=== PATIENT | male | born 1950 | race African-American/Black ===

== ENCOUNTER 2018-05-29 10:30 | Inpatient (IN) | payer OTHER, MEDICAID ==
[2018-05-29] MEDS ORDERED: ONDANSETRON 4 MG/2 ML VIAL ONE (11:08)
[2018-05-29] MEDS ORDERED: ONDANSETRON 4 MG/2 ML VIAL IVP ONE (11:12)
[2018-05-29 11:37] LABS: PLATELET COUNT 176 10^3/uL (150-400)
--- NOTE | 2018-05-29 12:21 | EDPHY ---
General - History Smoking Status: Former smoker Time Seen by Provider: 05/29/18 10:33 Narrative: CLINICAL IMPRESSION: Pneumonia, acute renal failure, hypoxia ASSESSMENT/PLAN: 67-year-old male, resident of [place], DNR, presents to the emergency department by ambulance for evaluation of acute renal failure and fatigue over the last 4-5 days. Patient reports a vomiting illness over the weekend and is accompanied by labs showing creatinine of 3.5, BUN of 113, potassium of 2.5. I was able to speak to the nurse practitioner caring for this patient at [place] [facility] who reported that initially the patient refused evaluation at the hospital. There was then a discussion with the patient about going on hospice care however when end of life questions were reviewed with him, he changed his mind and requested to go to the hospital. Patient arrives hypoxic at 79% on room air, somewhat confused which is reportedly new for him, and appears fatigued and weak. Chest x-ray concerning for a left lower lobe infiltrate. He has a corresponding mild leukocytosis of 10, normal lactate, renal failure with creatinine of 2.5 today, BUN of 118, improved potassium at 3 but still hypokalemic. Sepsis protocol initiated. Patient was given a 30 mL/kilos fluid bolus, blood cultures ordered, and patient will be admitted for further treatment. Case discussed with Rosetta from hospitalist service who assigned case to Dr. Stearns who saw the patient in the ED. I relayed the nurse practitioner's discussion with the patient to our hospitalist and provided nurse practitioner follow-up information. Patient tells me that he does agree to hospitalization and would like treatment. He was stabilized in the ED for transfer to the PCU. Case discussed with Dr. Tolliver DIFFERENTIAL DX: Differential includes but not limited to acute infection, renal insufficiency, severe dehydration, renal failure, severe electrolyte imbalance, bacteremia, sepsis ED PROCEDURES: See lab and/or imaging results below ED COURSE: I was able to speak with Pk, nurse practitioner with [facility], who clarified that the patient is a DNR and that over the weekend during his GI illness he was refusing transport to the hospital for further treatment of his acute renal failure and electrolyte imbalance. Pk states that they then had a discussion with the patient this morning regarding hospice care. However when they were going through end of life questions, patient then changed his mind and requested being transported to the hospital. I explained to tongue that the patient arrives hypoxic and he reported the patient does not wear oxygen normally and is usually only very mildly demented. Patient's hypoxia is new and he is requiring 2-3 L to maintain saturations in the 90s. Given that the patient requested Hospital transport, we feel that initiating antibiotic treatment for pneumonia is appropriate at this time. I discussed this with Dr. Tolliver who agrees. Patient will be admitted to the hospitalist and I also reviewed nurse practitioner's discussion with Dr. Stearns. CHIEF COMPLAINT: Abdominal pain, nausea, vomiting, sent from [place] HPI: 67-year-old male with a history of CVA, TBI, hypertension, and dementia, currently residing at [place], presents by ambulance today by request of the nurse practitioner at [place] for evaluation of dehydration and renal failure. Patient apparently had labs drawn 4 days ago with a creatinine of 3.5 , BUN of 113, potassium of 2.5. He was treated with 2 L normal saline and received 40 mEq use of oral potassium and was sent to the ED. Patient reports he has generalized abdomina discomfort and states his stomach is "upset. There is some question about whether the patient is on hospice care or there has been a discussion about hospice. Patient does not recollect this discussion. He has no complaints of fever or chills. No chest pain or shortness of breath. He reports he was recently placed on oxygen and arrived somewhat hypoxic in the upper 70s. He is saturating 91% on 2 L. patient does report he thinks he choked on some vomit recently. He is on Lasix which he states is for leg swelling. He does not report being told he has congestive heart failure and does not believe he is on a fluid restricted diet. Patient is a DNR and this is brought with him by ambulance. There are also labs arriving with the patient that show results from [place] emergency department 2 days ago however patient does not believe he was in [place]. I have called the nurse practitioner at [place] [facility] for further history. Awaiting call back. PAST MEDICAL HISTORY: CVA, TBI, hypertension, GERD, dementia See nurse/triage notes for additional history if applicable Pertinent Past Surgical History: None reported Family History: Noncontributory, patient has children who live in [place] Social History: Resides at [place], DNR, possible hospice patient REVIEW OF SYSTEMS: All other systems negative. Somewhat difficult to obtain due to patient's confusion Constitutional: No fever, no chills, positive for appetite change. Eyes: No discharge, vision change ENT: No sore throat, congestion, ear pain. Cardiovascular: No chest pain, no palpitations. Respiratory: No cough, no shortness of breath. Gastrointestinal: No abdominal pain, no vomiting, diarrhea. Genitourinary: No hematuria, dysuria, flank pain, pelvic pain Musculoskeletal: No back pain, joint swelling, joint pain, myalgias. Skin: No rashes, color change. Neurological: No headache, dizziness, positive for weakness. PHYSICAL EXAM: General Appearance: Alert, oriented x2, believes he is in [place], appears fatigued and weak, hypotensive, afebrile, hypoxic at 79% on room air, cooperative HEENT: TMs are clear bilaterally no perforation or FB, no injection, no evidence of serous or mucopurulent otitis. Oropharynx clear is with dry mucous membranes, no erythema or exudates, no tonsillar hypertrophy or asymmetry. Dentition without abnormality. Eyes: Cataracts noted, PERRLA, no acute vision change, nystagmus, swelling, discharge, pain or photosensitivity. Conjunctiva pink, no pallor or injection Neck: Supple, nontender, no lymphadenopathy, no midline pain, FROM, no meningismus. Respiratory: There are no retractions, lungs are clear to auscultation. Cardiac: Regular rate and rhythm, no murmurs or gallops. Gastrointestinal: Abdomen is soft, nontender, bowel sounds normal, no masses/ hernia, no rigidity, guarding or focal peritoneal findings. Neurological: [ Alert and oriented x 2, patient believes he is in [place], CN 2- 12 grossly intact. Skin: Warm, dry, no rashes, no nodules on palpation. Musculoskeletal: Extremities are symmetrical, full range of motion, no tenderness, deformity, swelling, or erythema. No pitting edema to lower extremities or evidence of fluid overload MEDICAL DECISION MAKING: Patient was seen independently. Secondary supervising physician at time of evaluation was Dr. Tolliver . Diagnosis: Left lower lobe pneumonia, acute renal failure, hypoxia, hypokalemia. New, requires workup Summary: See Assessment and Plan for summary of ED visit Clinical lab tests: ordered / reviewed. Independent visualization of images, tracing, or specimens: Yes. Decision to obtain medical records or history from someone other than the patient: Monet Feldman and patient's nurse practitioner provider Pk Review / Summarize previous medical records: Reviewed Monet Feldman records and recent admission notes Discussed patient with another provider: Dr. Tolliver, hospitalist, radiology Patient Progress: Stable for admission. (Mario Lagunas) Medical Decision Making: I did not see this patient while he was in the emergency department. However his care was discussed with the PA while the patient was in the department. I agree with treatment plan and management (Gato Tolliver) - Objective Vital Signs: Initial Vital Signs Temperature (C) 36.7 C 05/29/18 10:45 Heart Rate 71 05/29/18 10:45 Respiratory Rate 18 05/29/18 10:45 Blood Pressure 81/53 L 05/29/18 10:45 O2 Sat (%) 75 L 05/29/18 10:45 O2 Delivery Mode Nasal Cannula O2 (L/minute) 5 Allergies/Adverse Reactions: No Known Allergies Allergy (Unverified 06/18/14 15:29) Home Medications: Medication Instructions Recorded Acetaminophen [Tylenol ES 500 mg 500 mg PO Q6HRS PRN 05/29/18 (*)] Baclofen 5 mg PO TID 05/29/18 Ergocalciferol [Vitamin D2 (*)] 50,000 unit PO Q30D 05/29/18 Furosemide [Lasix 40 MG (*)] 40 mg PO DAILY 05/29/18 Levothyroxine [Synthroid 50 mcg 50 mcg PO DAILY06 05/29/18 (*)] Metoprolol Tartrate [Lopressor 25 12.5 mg PO BID 05/29/18 mg (*)] Nitroglycerin [Nitrostat 0.4 mg 0.4 mg SL Q5M PRN 05/29/18 (*)] [place]-3 Fatty Acids [Fish Oil 1000 1,000 mg PO DAILY 05/29/18 mg (*)] Omeprazole 20 mg PO DAILY 05/29/18 Omeprazole 20 mg PO DAILY PRN 05/29/18 Ondansetron Odt [Zofran Odt 4 mg 4 mg PO Q4 PRN 05/29/18 (*)] Potassium Chloride Po [Potassium 40 meq PO DAILY 05/29/18 Chloride 20 mg/15 ml (*)] Rivaroxaban [Xarelto 10mg (*)] 20 mg PO DAILY18 05/29/18 Sennosides [Senna Lax] 2 tab PO DAILY 05/29/18 Sertraline HCl [Zoloft 50mg (*)] 50 mg PO DAILY 05/29/18 Tapentadol HCl [Nucynta ER] 50 mg PO DAILY MDD y 05/29/18 Laboratory Results: Laboratory Results 05/29/18 11:20 05/29/18 11:20 Medications Given: Acetaminophen (Tylenol) 650 mg PO Q4HRS PRN PRN Reason: Pain, Mild/Fever, Can Take PO Stop: 11/25/18 14:44 Last Admin: 05/29/18 16:01 Dose: 650 mg Baclofen (Baclofen) 5 mg PO TID [facility] Stop: 11/25/18 15:59 Last Admin: 05/30/18 09:08 Dose: 5 mg Sodium Chloride (Ns) 1,000 mls @ 100 mls/hr IV CONT ANDRES Stop: 11/25/18 14:44 Last Admin: 05/30/18 02:44 Dose: 1,000 mls Piperacillin/Tazobactam/Dextrose (Zosyn 3.375 Gm (Premix)) 50 mls @ 100 mls/hr IV Q6 [facility] Stop: 06/28/18 17:59 Last Admin: 05/30/18 05:51 Dose: 50 mls Levothyroxine Sodium (Synthroid) 50 mcg PO DAILY06 [facility] Stop: 11/26/18 05:59 Last Admin: 05/30/18 05:51 Dose: 50 mcg Miscellaneous Medication (Tapentadol Hcl [Nucynta Er]) 50 mg PO DAILY [facility] Stop: 11/26/18 08:59 Last Admin: 05/30/18 09:11 Dose: Not Given Nystatin (Mycostatin Powder) 1 mariely TP TID AND[facility] Stop: 06/28/18 16:44 Last Admin: 05/30/18 09:11 Dose: 1 mariely Pantoprazole Sodium (Protonix) 40 mg PO DAILY ANDRES Stop: 11/26/18 08:59 Last Admin: 05/30/18 09:08 Dose: 40 mg Senna (Senokot) 2 tab PO DAILY [facility]RES Stop: 11/26/18 08:59 Last Admin: 05/30/18 09:07 Dose: 2 tab Sertraline HCl (Zoloft) 50 mg PO DAILY AND[facility] Stop: 11/26/18 08:59 Last Admin: 05/30/18 09:07 Dose: 50 mg Discontinued Medications Sodium Chloride (Ns) 1,000 mls @ 0 mls/hr IV EDNOW ONE; Wide Open PRN Reason: Protocol Stop: 05/29/18 13:02 Last Admin: 05/29/18 13:42 Dose: 1,000 mls Sodium Chloride (Ns) 2,400 mls @ 4,800 mls/hr 30 ml/kg infuse over 30 min ( 2400 ml) IV EDNOW ONE PRN Reason: Protocol Stop: 05/29/18 13:52 Last Admin: 05/29/18 14:06 Dose: 2,400 mls Piperacillin/Tazobactam/Dextrose (Zosyn 3.375 Gm (Premix)) 50 mls @ 100 mls/hr IV EDNOW ONE Stop: 05/29/18 14:29 Last Admin: 05/29/18 14:32 Dose: 50 mls Ondansetron HCl (Zofran) 4 mg IVP EDNOW ONE Stop: 05/29/18 11:13 Last Admin: 05/29/18 11:13 Dose: 4 mg Potassium Chloride (Klor Packets) 40 meq PO ONCE ONE Stop: 05/29/18 14:52 Last Admin: 05/29/18 17:28 Dose: Not Given Potassium Chloride (Klor-Con) 40 meq PO ONCE ONE Stop: 05/29/18 16:45 Last Admin: 05/29/18 18:02 Dose: 40 meq Potassium Chloride (Klor-Con) 40 meq PO ONCE ONE PRN Reason: Protocol Stop: 05/29/18 20:22 Last Admin: 05/29/18 22:27 Dose: 40 meq Potassium Chloride (Klor-Con) 10 - 40 meq PO ONCE ONE PRN Reason: Protocol Stop: 05/30/18 07:43 Last Admin: 05/30/18 09:08 Dose: 40 meq Departure - Departure Disposition: [facility] Inpatient Acute Clinical Impression: Hypokalemia Pneumonia Qualifiers: Pneumonia type: due to unspecified organism Laterality: left Lung location: lower lobe of lung Qualified Code(s): J18.1 - Lobar pneumonia, unspecified organism Acute renal failure Qualifiers: Acute renal failure type: unspecified Qualified Code(s): N17.9 - Acute kidney failure, unspecified Condition: Fair
[2018-05-29] MEDS ORDERED: NS 1,000 ML IV ONE (13:01)
[2018-05-29] MEDS ORDERED: NS 2,400 ML IV ONE (13:23)
[2018-05-29] MEDS ORDERED: PIPERACILLIN/TAZO 4.5 GM/DEX 100 ML IV ONE (13:23)
[2018-05-29] MEDS ORDERED: PIPERACILLIN/TAZO 3.375 GM/DEX 50 ML IV ONE (14:00)
[2018-05-29] MEDS ORDERED: ONDANSETRON 4 MG/2 ML VIAL IVP PRN (14:45)
[2018-05-29] MEDS ORDERED: ONDANSETRON DISINTEGRATING 4 MG TAB PO PRN (14:45)
[2018-05-29 14:47] LABS: INR 2.7 (0.83-1.16); PROTIME(PATIENT) 28.6 SEC (12.0-15.0)
[2018-05-29] MEDS ORDERED: PROTOCOL POTASSIUM 1 DOSE MISC PRN (14:47)
--- NOTE | 2018-05-29 15:04 | ASMTCMCOM ---
CM Note CM Note Notes: Patient presents to ED via ambulance from [place] with complaints of dehydration. See ED report for details. This CM has spoken with Gilbert and Giovana at to inform of admission for PNA. Giovana confirms that thsy have LM with patient's "family" but have not heard back. I have provided Giovana with patient's room number and direct phone number to provide to family if/when they hear from them. Patient is a DNR and a hospice consult was evidently discussed with patient this morning at prior to ED arrival. Giovana explains that patient had been resistant to coming to the ED over the weekend but decided today that he would come. This CM met with patient briefly prior to going upstairs and informed him that has LM with family regarding his admission. CM to follow Date Signed: 05/29/2018 03:02 PM Electronically Signed By:Karma Guzman RN
--- NOTE | 2018-05-29 15:06 | HOSPPROG ---
Hospitalist Progress Note Assessment/Plan: Case discussed with Arin Anglin [employer]ER OPERATOR. Agree with her plan with the following exceptions: Briefly, 67yo M with TBI complicated by dementia and left sided weakness, PE on xarelto, HTN presents from [facility] for evaluation of dehydration and renal failure. Patient is poor historian. ED provider spoke with his nurse practitioner at [place]. Symptoms started Sunday with nausea and non-bloody vomiting. Thinks he may have choked on some vomit at some point. He also has been having a non-productive cough and hiccups. No diarrhea, shortness of breath, fevers or chills, or urinary symptoms. He had labs done at [place] on 05/25 which showed a BUN/creatinine of 31/1.1. These values worsened over the next 3 days (labs were check 05/26, 05/27, and 05/28): 40/1.6, 87 /3.6, 113/3.5. He was also hypokalemic at 2.5. He was reportedly given 2L of normal saline and 40mEq of KCl sometime in the last 2 days. Initially the patient was resistant to coming to the hospital and was hospice was being discussed however patient changed his mind and is now ok being hospitalized and receiving IV therapies. In the ED here, his BUN is 118 and creatinine is 2.7 with a K of 3.0. His BP was as low as 70/49 but responded to IV fluids and improved to 90s/60s. He was started on IV zosyn and blood cultures were drawn. Interestingly, a venous lactate was undetectable. He is being admitted to the step down unit for further care. His exam is notable for decreased breath sounds in left base. He is not tachycardic and does not have a murmur. His abdomen is soft and nontender. He has trace pedal edema bilaterally. He has a large indentation and scar in his left skull. He is not moving his left extremities spontaneously. CXR shows left lower lobe consolidation. Assessment/Plan: 1. Hypotension: Fluid responsive at present. Unclear etiology, could be multifactorial from infection vs dehydration vs anti-hypertensives in setting of renal failure. He has received bolus fluids per sepsis protocol and will continue mIVF. Will need to monitor volume status as he does have some pedal edema. If decompensates, will need central access and vasopressors. Holding anti -hypertensives. 2. Left lower lobe infiltrate: Concern for aspiration pneumonia. Ok to cover with zosyn for now while hemodynamics are stabilizing. Blood cultures drawn. He isn't technically septic. 3. NATALIE: Cr actually improved from 05/28 after receiving outpatient fluids. Additionally, his BUN to creatinine ratio is significantly high, consistent with dehydration and will treat as such. 4. Nausea, vomiting: Check LFTs, lipase, abdominal x-ray for free air/ obstruction. 5. Hypokalemia: Interesting that this isn't elevated in setting of renal failure. Will place on protocol and monitor closely. 6. Alkalosis: Suspect due to GI losses and volume depletion. 7. PE: Unclear when this occurred and if provoked/unprovoked. Continue xarelto. 8. TBI with dementia: Lives at [place]. Involve case management. 9. GERD: On PPI 10. Hypothyroid: Cont LT4 replacement. 11. Chronic pain: Continue home tapentadol and baclofen. 12. HTN: Holding home meds. VTE ppx: H Code: DNR/DNI per discussion with him today. He is ok with receiving IV therapies and vasopressors. Diet: swallow eval then regular Dispo: Admit as inpatient to step down unit Objective: Vital Signs Temp Pulse Resp BP Pulse Ox 36.6 C 73 18 91/68 L 91 L 05/29/18 14:11 05/29/18 14:11 05/29/18 14:11 05/29/18 14:11 05/29/18 14:11 PT 28.6 SEC (12.0-15.0) H 05/29/18 14:30 INR 2.70 (0.83-1.16) H 05/29/18 14:30 ICD10 Worksheet Patient Problems: Problems Problem Status Onset Acute renal failure Acute Hypokalemia Acute Pneumonia Acute
--- NOTE | 2018-05-29 15:22 | PDGENHP ---
<Fiona Anglin - Last Filed: 05/29/18 15:38> History and Physical - Chief Complaint General malaise, vomiting - History of Present Illness HPI: This is a 67 y/o male with history of CVA, TBI, HTN, and dementia presenting via ambulance from his residence of [place] because of dehydration and renal failure. He reports general malaise for the last couple of days and vomiting. Denies diarrhea, fever, chills, chest pains, and palpitations. Apparently, labwork was drawn 4 days ago and BUN/Cr were 113/3.5 , K 2.5. He was treated with 2L NS and received K supplements and sent to the ED. He was recently placed on supplemental oxygen and reports it is usually set to 3L NC. Today's CXR reveal left basilar consolidation, suspected PNA w/ small effusion. He is being admitted for treatment and monitoring. Past Medical History 1. CVA 2. TBI (at age 25 y/o) 3. HTN 4. Dementia 5. Hx of PE's 6. GERD Past Surgical History: N/A Social 1. Lives at [place] 2. 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 Brain damage occurred at age 25 y/o. 3. Smokes 1 cigar 3x/week. Denies tobacco or etoh use. Uses cannabis. History Information - Allergies/Home Medication List Allergies/Adverse Reactions: No Known Allergies Allergy (Unverified 06/18/14 15:29) Home Medications: Acetaminophen [Tylenol ES 500 mg (*)] 500 mg PO Q6HRS PRN 05/29/18 [Last Taken Unknown] Baclofen 5 mg PO TID 05/29/18 [Last Taken Unknown] Ergocalciferol [Vitamin D2 (*)] 50,000 unit PO Q30D 05/29/18 [Last Taken Unknown ] Furosemide [Lasix 40 MG (*)] 40 mg PO DAILY 05/29/18 [Last Taken Unknown] Levothyroxine [Synthroid 50 mcg (*)] 50 mcg PO DAILY06 05/29/18 [Last Taken Unknown] Metoprolol Tartrate [Lopressor 25 mg (*)] 12.5 mg PO BID 05/29/18 [Last Taken Unknown] Nitroglycerin [Nitrostat 0.4 mg (*)] 0.4 mg SL Q5M PRN 05/29/18 [Last Taken Unknown] Brilliant-3 Fatty Acids [Fish Oil 1000 mg (*)] 1,000 mg PO DAILY 05/29/18 [Last Taken Unknown] Omeprazole 20 mg PO DAILY 05/29/18 [Last Taken Unknown] Omeprazole 20 mg PO DAILY PRN 05/29/18 [Last Taken Unknown] Ondansetron Odt [Zofran Odt 4 mg (*)] 4 mg PO Q4 PRN 05/29/18 [Last Taken Unknown] Potassium Chloride Po [Potassium Chloride 20 mg/15 ml (*)] 40 meq PO DAILY 05/29 [Last Taken Unknown] Rivaroxaban [Xarelto 10mg (*)] 20 mg PO DAILY18 05/29/18 [Last Taken Unknown] Sennosides [Senna Lax] 2 tab PO DAILY 05/29/18 [Last Taken Unknown] Sertraline HCl [Zoloft 50mg (*)] 50 mg PO DAILY 05/29/18 [Last Taken Unknown] Tapentadol HCl [Nucynta ER] 50 mg PO DAILY MDD y 05/29/18 [Last Taken Unknown] I have personally reviewed and updated: family history, medical history, social history, surgical history Past Medical History: See HPI list - Surgical History Additional surgical history: See HPI list - Family History Positive for: non-pertinent - Social History Smoking Status: Current some day smoker Tobacco Use: Cigar Alcohol Use: None Drug Use: Marijuana Review of Systems Review of Systems: ROS: 10pt was reviewed & negative except for what was stated in HPI & below Physical Exam Physical Exam: Lab data and imaging were reviewed. Case discussed with admitting physician, Dr. Aleksandr Stearns WBC: 10.27 Na: 130 K: 3.0 CO2: 37 BUN/Cr: 118/2.7 --> baseline 18/0.9 (2018) INR: 2.70 Lactic acid: <0.5 BNP: 786 CXR: See HPI Temp Pulse Resp BP Pulse Ox 36.6 C 72 18 92/61 L 91 L 05/29/18 14:11 05/29/18 14:58 05/29/18 14:58 05/29/18 14:58 05/29/18 14:58 O2 (L/minute) 5 Constitutional: no apparent distress, chronically ill appearing Eyes: PERRL, anicteric sclera, EOMI Ears, Nose, Mouth, Throat: hearing normal, ears appear normal, no oral mucosal ulcers, dry mucous membranes Cardiovascular: regular rate and rhythym, no murmur, rub, or gallop, tachycardia Respiratory: reduced air movement Gastrointestinal: normoactive bowel sounds, soft, non-tender abdomen, no palpable masses Genitourinary: no bladder fullness, no bladder tenderness Skin: warm, normal color, no rashes or abrasions, no fluctuance, no induration, No mottled Musculoskeletal: generalized weakness Neurologic: AAOx3, sensation intact bilaterally, CN II-XII Intact Psychiatric: interacting appropriately, not anxious, not encephalopathic, thought process linear Lymph, Heme, Immunologic: no cervical LAD, no supraclavicular LAD Lab Data & Imaging Review 05/29/18 11:20 05/29/18 11:20 WBC 10.27 10^3/uL (3.80-9.50) H 05/29/18 11:20 RBC 4.08 10^6/uL (4.40-6.38) L 05/29/18 11:20 Hgb 12.9 g/dL (13.7-17.5) L 05/29/18 11:20 Hct 38.6 % (40.0-51.0) L 05/29/18 11:20 MCV 94.6 fL (81.5-99.8) 05/29/18 11:20 MCH 31.6 pg (27.9-34.1) 05/29/18 11:20 MCHC 33.4 g/dL (32.4-36.7) 05/29/18 11:20 RDW 15.0 % (11.5-15.2) 05/29/18 11:20 Plt Count 176 10^3/uL (150-400) 05/29/18 11:20 MPV 10.4 fL (8.7-11.7) 05/29/18 11:20 Neut % (Auto) 77.9 % (39.3-74.2) H 05/29/18 11:20 Lymph % (Auto) 11.1 % (15.0-45.0) L 05/29/18 11:20 Webster % (Auto) 10.4 % (4.5-13.0) 05/29/18 11:20 Eos % (Auto) 0.1 % (0.6-7.6) L 05/29/18 11:20 Baso % (Auto) 0.2 % (0.3-1.7) L 05/29/18 11:20 Nucleat RBC Rel Count 0.0 % (0.0-0.2) 05/29/18 11:20 Absolute Neuts (auto) 8.00 10^3/uL (1.70-6.50) H 05/29/18 11:20 Absolute Lymphs (auto) 1.14 10^3/uL (1.00-3.00) 05/29/18 11:20 Absolute Monos (auto) 1.07 10^3/uL (0.30-0.80) H 05/29/18 11:20 Absolute Eos (auto) 0.01 10^3/uL (0.03-0.40) L 05/29/18 11:20 Absolute Basos (auto) 0.02 10^3/uL (0.02-0.10) 05/29/18 11:20 Absolute Nucleated RBC 0.00 10^3/uL (0-0.01) 05/29/18 11:20 Immature Gran % 0.3 % (0.0-1.1) 05/29/18 11: Immature Gran # 0.03 10^3/uL (0.00-0.10) 05/29/18 11:20 PT 28.6 SEC (12.0-15.0) H 05/29/18 14:30 INR 2.70 (0.83-1.16) H 05/29/18 14:30 APTT 69.6 SEC (23.0-38.0) H 05/29/18 14:30 VBG Lactic Acid < 0.5 mmol/L (0.7-2.1) L 05/29/18 14:31 Sodium 130 mEq/L (135-145) L 05/29/18 11:20 Potassium 3.0 mEq/L (3.5-5.2) L 05/29/18 11:20 Chloride 84 mEq/L (97-110) L 05/29/18 11:20 Carbon Dioxide 37 mEq/l (22-31) H 05/29/18 11:20 Anion Gap 9 mEq/L (6-14) 05/29/18 11:20 BUN 118 mg/dL (7-23) H* 05/29/18 11:20 Creatinine 2.7 mg/dL (0.7-1.3) H 05/29/18 11:20 Estimated GFR 24 05/29/18 11:20 Glucose 105 mg/dL (70-100) H 05/29/18 11:20 Calcium 7.2 mg/dL (8.5-10.4) L 05/29/18 11:20 Magnesium 2.2 mg/dL (1.6-2.3) 05/29/18 11:20 Total Bilirubin 1.4 mg/dL (0.1-1.4) 05/29/18 11:20 NT-Pro-B Natriuret Pep 786 pg/mL (0-125) H 05/29/18 11:20 Assessment & Plan Plan: Assessment: 67 y/o male with hx of CVA, TBI, dementia, HTN and GERD presents to the emergency room in renal failure and dehydration. Upon further imaging, it is suspected pneumonia. The pt feels he may have aspirated on his vomit a few days ago. He was hypotensive (70/49) in ED, fluid resuscitated w/ 3.4L NS and BP improved (92/61). He received Zosyn and Zofran in ED. Plan -C/o cough and vomiting; respiratory pathogen PCR pending & abdominal x-ray to r /o bowel obstruction -Cont Zosyn Q6H for suspected PNA. Lactic acid <0.5, afebrile, mild leukocytosis. Blood cultures pending. -Chronic O2 wearer (typically at 3L NC); currently 5L NC sating at 91%. Continue O2 use -Cont tele monitoring d/t electrolyte disturbances -Hyponatremia (130): I suspect this is from poor PO intake and fluid loss. He does have a dry mucous membrane. Cont IVF and recheck CMP in AM. -Hypokalemia (3.0): *See above. Magnesium 2.2. K protocol initiated; will receive 40 meq PO of K today. -Renal failure: BUN/Cr 118/2.7. *See hyponatremia. Baseline ~November 2017 was BUN/Cr: 18/0.9 -Hx of PEs: on Xarelto, INR 2.70 Diet: Regular VTE ppx: SCDs, Xarelto Code: DNR Dispo: Admit to inpatient <Adolph Stearns - Last Filed: 05/29/18 21:42> History and Physical - History of Present Illness Review of Systems Review of Systems: Physical Exam Physical Exam: Temp Pulse Resp BP Pulse Ox 36.5 C 71 12 89/51 L 99 05/29/18 20:00 05/29/18 20:00 05/29/18 20:00 05/29/18 20:00 05/29/18 20:00 O2 (L/minute) 8 Lab Data & Imaging Review 05/29/18 11:20 05/29/18 19:55 WBC 10.27 10^3/uL (3.80-9.50) H 05/29/18 11:20 RBC 4.08 10^6/uL (4.40-6.38) L 05/29/18 11:20 Hgb 12.9 g/dL (13.7-17.5) L 05/29/18 11:20 Hct 38.6 % (40.0-51.0) L 05/29/18 11:20 MCV 94.6 fL (81.5-99.8) 05/29/18 11:20 MCH 31.6 pg (27.9-34.1) 05/29/18 11:20 MCHC 33.4 g/dL (32.4-36.7) 05/29/18 11:20 RDW 15.0 % (11.5-15.2) 05/29/18 11:20 Plt Count 176 10^3/uL (150-400) 05/29/18 11:20 MPV 10.4 fL (8.7-11.7) 05/29/18 11:20 Neut % (Auto) 77.9 % (39.3-74.2) H 05/29/18 11:20 Lymph % (Auto) 11.1 % (15.0-45.0) L 05/29/18 11:20 Webster % (Auto) 10.4 % (4.5-13.0) 05/29/18 11:20 Eos % (Auto) 0.1 % (0.6-7.6) L 05/29/18 11:20 Baso % (Auto) 0.2 % (0.3-1.7) L 05/29/18 11:20 Nucleat RBC Rel Count 0.0 % (0.0-0.2) 05/29/18 11:20 Absolute Neuts (auto) 8.00 10^3/uL (1.70-6.50) H 05/29/18 11:20 Absolute Lymphs (auto) 1.14 10^3/uL (1.00-3.00) 05/29/18 11:20 Absolute Monos (auto) 1.07 10^3/uL (0.30-0.80) H 05/29/18 11:20 Absolute Eos (auto) 0.01 10^3/uL (0.03-0.40) L 05/29/18 11:20 Absolute Basos (auto) 0.02 10^3/uL (0.02-0.10) 05/29/18 11:20 Absolute Nucleated RBC 0.00 10^3/uL (0-0.01) 05/29/18 11:20 Immature Gran % 0.3 % (0.0-1.1) 05/29/18 11: Immature Gran # 0.03 10^3/uL (0.00-0.10) 05/29/18 11:20 PT 28.6 SEC (12.0-15.0) H 05/29/18 14:30 INR 2.70 (0.83-1.16) H 05/29/18 14:30 APTT 69.6 SEC (23.0-38.0) H 05/29/18 14:30 VBG Lactic Acid < 0.5 mmol/L (0.7-2.1) L 05/29/18 14:31 Sodium 130 mEq/L (135-145) L 05/29/18 11:20 Potassium 2.8 mEq/L (3.5-5.2) L 05/29/18 19:55 Chloride 84 mEq/L (97-110) L 05/29/18 11:20 Carbon Dioxide 37 mEq/l (22-31) H 05/29/18 11:20 Anion Gap 9 mEq/L (6-14) 05/29/18 11:20 BUN 118 mg/dL (7-23) H* 05/29/18 11:20 Creatinine 2.7 mg/dL (0.7-1.3) H 05/29/18 11:20 Estimated GFR 24 05/29/18 11:20 Glucose 105 mg/dL (70-100) H 05/29/18 11:20 Calcium 7.2 mg/dL (8.5-10.4) L 05/29/18 11:20 Magnesium 2.2 mg/dL (1.6-2.3) 05/29/18 11:20 Total Bilirubin 1.5 mg/dL (0.1-1.4) H 05/29/18 11:30 Conjugated Bilirubin 1.0 mg/dL (0.0-0.5) H 05/29/18 11:30 Unconjugated Bilirubin 0.5 mg/dL (0.0-1.1) 05/29/18 11:30 AST 26 IU/L (17-59) 05/29/18 11:30 ALT 14 IU/L (21-72) L 05/29/18 11:30 Alkaline Phosphatase 46 IU/L (38-126) 05/29/18 11:30 NT-Pro-B Natriuret Pep 786 pg/mL (0-125) H 05/29/18 11:20 Total Protein 6.0 g/dL (6.3-8.2) L 05/29/18 11:30 Albumin 2.4 g/dL (3.5-5.0) L 05/29/18 11:30 Lipase 110 IU/L (23-300) 05/29/18 11:30 Assessment & Plan Assessment: Acute renal failure (Acute) Hypokalemia (Acute) Pneumonia (Acute) Plan: Chart reviewed, patient personally examined, and case discussed with Arin Anglin NP. Agree with her plan outlined above. Please see my separate note for additional details.
[2018-05-29] MEDS: NS 1,000 ML IV SCH (15:46)
[2018-05-29] MEDS: POTASSIUM CL 20 MEQ PKT PO ONE ×2 (15:46→17:28)
[2018-05-29] MEDS: ACETAMINOPHEN 325 MG TAB PO PRN (16:01)
[2018-05-29] MEDS: BACLOFEN 10 MG TAB PO SCH ×2 (16:29→22:26)
[2018-05-29] MEDS ORDERED: POTASSIUM CL 20 MEQ TAB PO ONE (16:44)
[2018-05-29] MEDS: NYSTATIN POWDER 15 GM BTL TP SCH ×2 (17:28→22:26)
[2018-05-29] MEDS: PIPERACILLIN/TAZO 3.375 GM/DEX 50 ML IV SCH ×2 (17:57→23:46)
[2018-05-29] MEDS ORDERED: PIPERACILLIN/TAZO 4.5 GM/DEX 100 ML IV SCH (18:00)
[2018-05-29] MEDS ORDERED: POTASSIUM CL 10 MEQ TAB PO ONE (20:21)
--- NOTE | 2018-05-29 21:06 | PDMN ---
Medical Necessity Medical necessity: [facility] M282 Aspiration Pneumonia, 3 days: 67 yo presents from assisted living w/ dehydration and renal fx, suspected pneumonia, possibly aspiration per pt report. Pt hypotensive on admit 70/49, normally on 3L O2 but requiring 5L to sat at 91%, pt is hyponatremic 130, hypokalemic 3.0 and in renal fx w/ Cr 2.7 (baseline creat 0.9) meeting [facility] IP criteria med nec for aspiration pneumonia w/ hemodynamic instability and hypoxemia. Pt on IVF and IV antibx, cont tele monitoring. Hx CVA, TBI at 25yo, HTN, dementia, PEs, GERD
[2018-05-30] MEDS: NS 1,000 ML IV SCH ×2 (02:44→18:06)
[2018-05-30] MEDS: LEVOTHYROXINE 50 MCG TAB PO SCH (05:51)
[2018-05-30] MEDS: PIPERACILLIN/TAZO 3.375 GM/DEX 50 ML IV SCH ×2 (05:51→12:51)
[2018-05-30 06:11] LABS: PLATELET COUNT 164 10^3/uL (150-400)
[2018-05-30] MEDS ORDERED: POTASSIUM CL 10 MEQ TAB PO ONE (07:42)
[2018-05-30] MEDS: SERTRALINE HCL 50 MG TAB PO SCH (09:07)
[2018-05-30] MEDS: SENNOSIDES 1 TAB PO SCH (09:07)
[2018-05-30] MEDS: BACLOFEN 10 MG TAB PO SCH ×3 (09:08→22:39)
[2018-05-30] MEDS: PANTOPRAZOLE SODIUM 40 MG TAB PO SCH (09:08)
[2018-05-30] MEDS: TAPENTADOL HCL 50 MG PO SCH (09:11)
[2018-05-30] MEDS: NYSTATIN POWDER 15 GM BTL TP SCH ×3 (09:11→22:46)
--- NOTE | 2018-05-30 12:57 | WOCRNPDOC ---
SILVIA Advanced Assessment Note - Skin Integrity Problem, Advanced Assess Coccyx Pressure Injury Dressing Type: Mepilex (sacral) Dressing Description: Clean/Dry, Intact Closure Description: Not Approximated Exudate Amount: Scant Exudate Color: Reddish/Yellow Exudate Characteristic(s): Serosanguinous Integumentary Issue Intervention: Dressing Changed, Hydrogel Applied Thalia Wound Tissue: Scarred Wound Bed Color: Daniels Wound Bed Constitution: Granulation Tissue Wound Edges: Attached, Well Defined Site Measurement - Head-to-Toe Length X Width X Depth (cm): 0.7x0.3x0.3 Pressure Injury Stage: Stage 3 Pressure Injury Present on Admit: Yes Skin Integrity Problem Comment: Patient rolled to his left side with assist from BAUTISTA Arguelles and LEISA Rehman. Mepilex sacral dressing removed to reveal significant scarring and several full thickness open areas. This wound currently presents as a small stage 3 wound, present on admission. Given the presence of granulation tissue and the significant scarring, I suspect this wound has been present for quite some time. Wound bed cleaned with NS and gauze and mepilex sacral dressing reapplied upside down to better accommodate patient' s anatomy. Pressure relieving measures implemented. Offloading discussed with patient who was able to confirm that he needed to "stay off his back". All questions answered. Wound care will round again early next week. Left Ischial Tuberosity Pressure Injury Dressing Type: Mepilex (sacral) Dressing Description: Intact, Shadowed Exudate Color: Reddish/Yellow Exudate Characteristic(s): Serosanguinous Integumentary Issue Intervention: Dressing Changed, Hydrogel Applied Thalia Wound Tissue: Intact, Scarred Wound Bed Color: Daniels Wound Bed Constitution: Granulation Tissue Wound Edges: Attached, Well Defined Site Measurement - Head-to-Toe Length X Width X Depth (cm): 0.5x0.5x0.2 Pressure Injury Stage: Stage 3 Pressure Injury Present on Admit: Yes Skin Integrity Problem Comment: Small, full thickness wound with obvious scarring to the area. This wound currently presents as a stage 3 pressure injury , present on admission. Pressure relieving measures implemented. Right Ischial Tuberosity Pressure Injury Dressing Type: Mepilex (sacral) Dressing Description: Intact, Shadowed Exudate Amount: Scant Exudate Color: Reddish/Yellow Exudate Characteristic(s): Serosanguinous Integumentary Issue Intervention: Dressing Changed, Hydrogel Applied Thalia Wound Tissue: Intact, Scarred Wound Bed Color: Brown, Daniels Wound Bed Constitution: Scab Wound Edges: Attached, Well Defined Site Measurement - Head-to-Toe Length X Width X Depth (cm): 4.5x3.8xscab Pressure Injury Stage: Stage 3 Pressure Injury Present on Admit: Yes Skin Integrity Problem Comment: Patient with scab to area, surrounded by scarring. This wound currently presents as a full thickness wound, indicating a stage 3 pressure injury present on admission.
--- NOTE | 2018-05-30 15:00 | HOSPPROG ---
Hospitalist Progress Note Assessment/Plan: 67 year old male with pmh of HTN, PE, TBI, Hypothyroid admitted with hypotension , ARF, acute on chronic hypoxemic respiratory failure. Acute Hypoxemic respiratory failure- Concern for aspiration on admission. He does have a LLL infiltrate. respiratory panel positive for RSV. He is on 3 liters at home but is requirig 5 liters while here. -check procalcitonin -stop zosyn, change to unasyn for aspiration -cont oxygen, nebs PRN Hypotension- etiology unclear. reported as fluid responsive on admission but pressures have remained low since coming from ER. he has been on fluids overnight and pressures of 80-90 systolic have persisted. Lactates have not been elevated. He may just have been profoundly hypovolemic from GI losses from diarrhea with NV but we would expect more of a response to IVNS overnight. -cont abx as above -MAP has remained above 65 but would consider adding midodrine TID if pressures dip. -recheck lactate NATALIE- creatinine has improved with IVNS from 2.7 to 2.3 today. presumed prerenal azotemia from hypotension and poor po intake. Hypokalemia- presumed GI losses from diarrhea. on protocol. PE- on xarelto. cont Hypothyroid- cont synthroid. check TSH Chronic pain- on nucynta and baclofen. Hold nucynta for now in setting of hypotension NV- seems to have resolved. No emesis today. Diarrhea- No BM since admission. PPX- SCDs, Xarelto Fluids- Cont ns Lytes- low K, repleting Nutrition- regular Cor-DNR Dispo- inpatinet for hypoxia, RSV, aspiration. Patient is not decisional. Hospice not able to eval. Subjective: has hiccups which are bothering him. Coughing up a lot of phlegm. No other complaints. Objective: Vital Signs Temp Pulse Resp BP Pulse Ox 36.6 C 71 20 84/58 L 100 05/30/18 11:51 05/30/18 11:51 05/30/18 11:51 05/30/18 11:51 05/30/18 11:51 Microbiology 05/29/18 15:00 Respiratory Panel (PCR) - Final Nasal, Sinus - Swab Respiratory Syncytial Virus Laboratory Results 05/30/18 05:49 05/30/18 05:49 05/29/18 05/30/1805/31/19 05:59 05:59 05:59 Intake Total 1600 Output Total 75 50 Balance 1525 -50 PT 28.6 SEC (12.0-15.0) H 05/29/18 14:30 INR 2.70 (0.83-1.16) H 05/29/18 14:30 - Physical Exam Constitutional: no apparent distress, appears nourished, not in pain Eyes: PERRL, anicteric sclera, EOMI Ears, Nose, Mouth, Throat: moist mucous membranes, hearing normal, ears appear normal, no oral mucosal ulcers Cardiovascular: regular rate and rhythym, no murmur, rub, or gallop Respiratory: reduced air movement, inspiratory crackles Gastrointestinal: normoactive bowel sounds, soft, non-tender abdomen, no palpable masses Genitourinary: no bladder fullness, no bladder tenderness, no renal bruits, cary in urethra Skin: no rashes or abrasions, no fluctuance, no induration Musculoskeletal: generalized weakness Neurologic: other (oriented to name, ) Psychiatric: not anxious, poor memory Lymph, Heme, Immunologic: no cervical LAD, no supraclavicular LAD ICD10 Worksheet Patient Problems: Problems Problem Status Onset Acute renal failure Acute Hypokalemia Acute Pneumonia Acute
--- NOTE | 2018-05-30 16:17 | ASMTCMCOM ---
CM Note CM Note Notes: Pts case discussed in tx rounds. Pt is deemed non decisional per Dr. Orr. [facility] came to attempt a evaluation. Aga was unsuccessful as pt is not decisional. CM has been in touch w/ Dominique at [facility]. It is documented on their end that Shanta Wilson (P#: [phone]) is an ex and MDPOA. CM tried that number and it is busy. Per [facility]'s social work program coordinator, Yuan all the numbers that they have on file are either disconnected or busy. They report that the ex hasn't been in contact for 8 months. CM met w/ pt for dispo planning. Pt provided a phone number for his friend Antelmo Gates and the phone number does not work. Pt reports that they have been friends for 16 years and he lives in [place]. CM spoke to Fely about this case. CM to follow. Date Signed: 05/30/2018 04:17 PM Electronically Signed By:ERWIN Winkler
--- NOTE | 2018-05-30 16:27 | ASMTCMCOM ---
TEO Note CM Note Notes: TEO spoke to Noah, child welfare director at [facility]. Noah reports that pt is welcomed to come back and they will work on getting a proxy. Noah was hoping that pt can come back w/ palliative care services. TEO forwarded pts ex 's name and friend's name to Fely to look up. Date Signed: 05/30/2018 04:26 PM Electronically Signed By:ERWIN Winkler
[2018-05-30] MEDS: RIVAROXABAN 10 MG TAB PO SCH (17:06)
[2018-05-30] MEDS: AMPICILLIN/SULBACTAM 3 GM in NS 100 ML IV SCH (17:10)
[2018-05-31] MEDS: AMPICILLIN/SULBACTAM 3 GM in NS 100 ML IV SCH ×5 (00:21→17:32)
[2018-05-31] MEDS: LEVOTHYROXINE 50 MCG TAB PO SCH (05:37)
[2018-05-31] MEDS ORDERED: POTASSIUM CL 10 MEQ TAB PO ONE ×2 (05:56→10:58)
[2018-05-31 07:48] LABS: PLATELET COUNT 169 10^3/uL (150-400)
[2018-05-31] MEDS: BACLOFEN 10 MG TAB PO SCH ×2 (09:39→17:31)
[2018-05-31] MEDS: SERTRALINE HCL 50 MG TAB PO SCH (09:40)
[2018-05-31] MEDS: SENNOSIDES 1 TAB PO SCH (09:40)
[2018-05-31] MEDS: ACETAMINOPHEN 325 MG TAB PO PRN ×2 (09:40→17:31)
[2018-05-31] MEDS: PANTOPRAZOLE SODIUM 40 MG TAB PO SCH (09:40)
[2018-05-31] MEDS: NYSTATIN POWDER 15 GM BTL TP SCH ×2 (09:41→17:44)
[2018-05-31] MEDS ORDERED: PNEUMOC 13-VAL CONJ-DIP CRM/PF 0.5 ML SYR (PREVNAR 13) IM ONE (11:00)
[2018-05-31] MEDS: TAPENTADOL HCL 50 MG PO SCH (12:20)
--- NOTE | 2018-05-31 15:08 | HOSPPROG ---
Hospitalist Progress Note Assessment/Plan: 67 year old male with pmh of HTN, PE, TBI, Hypothyroid admitted with hypotension , ARF, acute on chronic hypoxemic respiratory failure. Acute Hypoxemic respiratory failure- Concern for aspiration on admission. He does have a LLL infiltrate. respiratory panel positive for RSV. He is on 3 liters at home but is requirig 3-5 liters liters while here. -elevated procalcitonin -continue unasyn treat for 7days tentatively -cont oxygen, nebs PRN Hypotension- etiology unclear. reported as fluid responsive on admission but pressures have remained low since coming from ER. he has been on fluids overnight and pressures of 80-90 systolic have persisted. Lactates have not been elevated. He may just have been profoundly hypovolemic from GI losses from diarrhea with NV but we would expect more of a response to IVNS overnight. -cont abx as above -MAP has remained above 65 but would consider adding midodrine TID if pressures dip. -recheck lactate -continue IVNS NATALIE- creatinine has continued to improve with IVNS. down to 1.6 today. continue fluids and recheck renal function in am. Hypokalemia- presumed GI losses from diarrhea. on protocol. PE- on xarelto. cont Hypothyroid- cont synthroid. check TSH Chronic pain- on nucynta and baclofen. will restart nucynta as he is having a fair amountof discomfort. NV- seems to have resolved. No emesis today. Diarrhea- resolved, but now having black tarry stools. Will send for fecal hemoccult. Decubitus- has likely stage 3 wound on buttocks. Wound care consulted. PPX- SCDs, Xarelto Fluids- Cont ns Lytes- low K, repleting Nutrition- regular Cor-DNR Dispo- inpatinet for hypoxia, RSV, aspiration Subjective: paitent with pain all over. Objective: Vital Signs Temp Pulse Resp BP Pulse Ox 36.8 C 46 L 20 98/52 L 100 05/31/18 11:38 05/31/18 11:38 05/31/18 11:38 05/31/18 11:38 05/31/18 11:38 Laboratory Results 05/31/18 07:22 05/31/18 07:22 05/30/18 05/31/18 06/01/18 05:59 05:59 05:59 Intake Total 1600 7900 240 Output Total 75 2300 Balance 1525 5600 240 PT 28.6 SEC (12.0-15.0) H 05/29/18 14:30 INR 2.70 (0.83-1.16) H 05/29/18 14:30 - Physical Exam Constitutional: no apparent distress, appears nourished, not in pain Eyes: PERRL, anicteric sclera, EOMI Ears, Nose, Mouth, Throat: moist mucous membranes, hearing normal, ears appear normal, no oral mucosal ulcers Cardiovascular: regular rate and rhythym, no murmur, rub, or gallop Respiratory: reduced air movement, inspiratory crackles Gastrointestinal: normoactive bowel sounds, soft, non-tender abdomen, no palpable masses Genitourinary: no bladder fullness, no bladder tenderness, no renal bruits Skin: no rashes or abrasions, no fluctuance, no induration Musculoskeletal: generalized weakness Neurologic: other (confused, oriented to self only. ) Psychiatric: not anxious, encephalopathic, poor judgement, poor memory Lymph, Heme, Immunologic: no cervical LAD, no supraclavicular LAD ICD10 Worksheet Patient Problems: Problems Problem Status Onset Acute renal failure Acute Hypokalemia Acute Pneumonia Acute
--- NOTE | 2018-05-31 15:22 | ASMTCMCOM ---
CM Note CM Note Notes: Pts case discussed in tx rounds. Dominique sent pts MDPOA paperwork over. CM put it into pts chart. CM called pts daughter Inga (P#: [phone]) and left a msg. CM attempted to call Chani's phone number again but it was busy again. Fely will try to look up Chani up on a system finder. Pt will return back to [facility] when medically stable. [employer] [facility] will be able to assist in finding proxy. CM to follow. Plan: [employer] Date Signed: 05/31/2018 03:22 PM Electronically Signed By:ERWIN Winkler
--- NOTE | 2018-05-31 16:16 | ASMTCMCOM ---
CM Note CM Note Notes: Pts friend Olive (P#: [phone]) stopped by and visited w/ pt. Olive is willing to be proxy until pts friend Jos (P#:[phone])returns from [place]. CM left a msg for Jos and requested a call back. CM shared this info w/ Fely and Dominique at [facility]. CM faxed proxy paperwork to [facility]. CM to follow. Plan: [place] [facility] Date Signed: 05/31/2018 04:15 PM Electronically Signed By:ERWIN Winkler
[2018-06-01] MEDS ORDERED: POTASSIUM CL 10 MEQ TAB PO ONE ×2 (00:44→21:39)
[2018-06-01] MEDS: BACLOFEN 10 MG TAB PO SCH ×3 (01:00→15:58)
[2018-06-01] MEDS: AMPICILLIN/SULBACTAM 3 GM in NS 100 ML IV SCH ×3 (01:00→13:00)
[2018-06-01] MEDS: PANTOPRAZOLE SODIUM 40 MG VIAL IVP SCH ×2 (01:00→10:43)
[2018-06-01] MEDS: NYSTATIN POWDER 15 GM BTL TP SCH ×3 (01:01→15:59)
[2018-06-01] MEDS: ACETAMINOPHEN 325 MG TAB PO PRN ×2 (01:01→15:58)
[2018-06-01 08:30] LABS: PLATELET COUNT 225 10^3/uL (150-400)
[2018-06-01] MEDS: SENNOSIDES 1 TAB PO SCH ×2 (10:30→10:42)
[2018-06-01] MEDS: LEVOTHYROXINE 50 MCG TAB PO SCH (10:42)
[2018-06-01] MEDS: SERTRALINE HCL 50 MG TAB PO SCH (10:42)
[2018-06-01] MEDS: TAPENTADOL HCL 50 MG PO SCH (10:44)
--- NOTE | 2018-06-01 15:27 | HOSPPROG ---
Hospitalist Progress Note Assessment/Plan: 67 year old male with pmh of HTN, PE, TBI, Hypothyroid admitted with hypotension , ARF, acute on chronic hypoxemic respiratory failure. Acute Hypoxemic respiratory failure- Concern for aspiration on admission. He does have a LLL infiltrate. respiratory panel positive for RSV. He has substantially improved in the last 24 hours. Now down to 1-2 liters. -continue unasyn treat for 7days tentatively -cont oxygen, nebs PRN Hypotension- Resolved. Likely secondary to hypovolemia. Has responded to fluids and now pressures have normalized. -cont abx as above -continue IVNS NATALIE- Resolved. creatinine has continued to improve with IVNS. down to 1.2 today. continue fluids and recheck renal function in am. Hypokalemia- presumed GI losses from diarrhea. on protocol. PE- on xarelto. cont Hypothyroid- cont synthroid. check TSH Chronic pain- on nucynta and baclofen. will restart nucynta as he is having a fair amountof discomfort. NV- seems to have resolved. No emesis today. Diarrhea- resolved, but now having black tarry stools. Will send for fecal hemoccult. Decubitus- has likely stage 3 wound on buttocks. Wound care consulted. melena- nurse reported one small black BM that was positive for fecal occult. patient has not had any further BMS since this time. Would think that if he was having GIB would be having more stools as blood is a natural laxative. I asked them to monitor for next BM and if melenic will consult GI for eval. -start PPI for now -check stool for melena if positive, consult GI -monitor H/H closely PPX- SCDs, Xarelto Fluids- Cont ns Lytes- low K, repleting Nutrition- regular Cor-DNR Dispo- patient improved. need to ensure no GIB. possible dispo back to SNF in 1- 2 days. Subjective: no complaints. Objective: Vital Signs Temp Pulse Resp BP Pulse Ox 36.8 C 83 17 138/80 H 96 06/01/18 08:00 06/01/18 12:24 06/01/18 12:24 06/01/18 12:24 06/01/18 12:24 Laboratory Results 06/01/18 08:13 06/01/18 08:13 02/06/01/18 06/02/18 05:59 05:59 05:59 Intake Total 7900 2060 Output Total 2300 800 Balance 5600 1260 PT 28.6 SEC (12.0-15.0) H 05/29/18 14:30 INR 2.70 (0.83-1.16) H 05/29/18 14:30 - Physical Exam Constitutional: no apparent distress, appears nourished, not in pain Eyes: PERRL Ears, Nose, Mouth, Throat: moist mucous membranes, hearing normal, ears appear normal, no oral mucosal ulcers Cardiovascular: regular rate and rhythym, no murmur, rub, or gallop Respiratory: reduced air movement Gastrointestinal: normoactive bowel sounds, soft, non-tender abdomen, no palpable masses Genitourinary: no bladder fullness, no bladder tenderness, no renal bruits Skin: no rashes or abrasions, no fluctuance, no induration Musculoskeletal: generalized weakness Neurologic: other (oriented to self. ) Psychiatric: encephalopathic, poor judgement, poor memory Lymph, Heme, Immunologic: no cervical LAD, no supraclavicular LAD ICD10 Worksheet Patient Problems: Problems Problem Status Onset Acute renal failure Acute Hypokalemia Acute Pneumonia Acute
[2018-06-01] MEDS: RIVAROXABAN 10 MG TAB PO SCH (18:01)
[2018-06-01] MEDS: MICAFUNGIN NA 100 MG in NS 100 ML IV SCH (18:01)
[2018-06-01] MEDS: NS 1,000 ML IV SCH (18:12)
[2018-06-02] MEDS ORDERED: POTASSIUM CL 10 MEQ TAB ONE (00:04)
[2018-06-02] MEDS: AMPICILLIN/SULBACTAM 3 GM in NS 100 ML IV SCH ×6 (00:12→23:45)
[2018-06-02] MEDS: PANTOPRAZOLE SODIUM 40 MG VIAL IVP SCH ×3 (00:13→23:45)
[2018-06-02] MEDS: ACETAMINOPHEN 325 MG TAB PO PRN ×4 (00:13→23:45)
[2018-06-02] MEDS: BACLOFEN 10 MG TAB PO SCH ×4 (00:14→23:45)
[2018-06-02] MEDS: NYSTATIN POWDER 15 GM BTL TP SCH ×3 (00:14→16:35)
[2018-06-02] MEDS: LEVOTHYROXINE 50 MCG TAB PO SCH (06:19)
[2018-06-02] MEDS ORDERED: POTASSIUM CL 10 MEQ TAB PO ONE ×2 (07:59→23:46)
[2018-06-02] MEDS ORDERED: BISACODYL 10 MG SUPP PR PRN (09:58)
[2018-06-02] MEDS ORDERED: POLYETHYLENE GLYCOL 3350 17 GM PKT PO PRN (09:58)
[2018-06-02] MEDS ORDERED: LACTULOSE 20 GM/30 ML UDCUP PO PRN (09:58)
[2018-06-02] MEDS ORDERED: MAGNESIUM HYDROXIDE 30 ML UDCUP PO PRN (09:58)
[2018-06-02] MEDS: SENNOSIDES 1 TAB PO SCH (10:02)
[2018-06-02] MEDS: SERTRALINE HCL 50 MG TAB PO SCH (10:03)
[2018-06-02] MEDS: TAPENTADOL HCL 50 MG PO SCH (10:09)
[2018-06-02] MEDS: NS 1,000 ML IV SCH (12:47)
--- NOTE | 2018-06-02 13:52 | PDCONSULT ---
Licensed Massage Therapist Note: 67-year-old male with CVA, total brain injury and dementia who resides at [place] with the following problems: 1. RSV: Droplet and contact precautions as you are doing 2. Nausea/vomiting: May have been due to RSV. Now resolved 3. Possible aspiration pneumonia due to nausea/vomiting . Would recommend 5 days of antibiotic therapy total. Patient has significantly improved and is off O2 supplementation. Antibiotic stop date is 06/03/2018. If needed could step down to Augmentin 4. Belgica glabrata low-grade blood stream infection. Most common source is either line or GI. Suspect GI translocation. Suspect CT scan would not change overall care for this patient as he has a benign abdominal exam is now tolerating p.o. Would completion of 7 days via peripheral IV of micafungin due to likely azole resistance with Belgica glabrata . Call ID for additional questions. No ID followup needed 5. Underlying dementia: Could consider ethics consult to help direct therapy in the future. Reason for consultation: Belgica glabrata bloodstream infection - History of Present Illness HPI: This is a 67 y/o male with history of CVA, TBI, HTN, and dementia presenting via ambulance from his residence of [place] on 05/29/2018 because of dehydration and renal failure. History is difficult but today he denies specific complaints. On admission it was reported that he described general malaise for the last couple of days and vomiting. KUB on admission showed no bowel obstruction. Denies diarrhea, fever, chills, chest pains, and palpitations. He was noted to have lab abnormalities of: BUN/Cr were 113/3.5, K 2.5 and was initially just treated in the emergency room but then returned for admission when developed hypoxemia. X-ray showed left basilar consolidation , suspected PNA w/small effusion patient was initially started on Zosyn then step-down to Unasyn. Yesterday 1 of 2 blood cultures was found to have Belgica glabrata. Patient did not have a line in place. No recent hospitalization up with an ER visit. Id was called to manage candidemia Past Medical History 1. CVA 2. TBI (at age 25 y/o) 3. HTN 4. Dementia 5. Hx of PE's 6. GERD Past Surgical History: N/A Social 1. Lives at [place] 2. 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 Brain damage occurred at age 25 y/o. 3. Smokes 1 cigar 3x/week. Denies tobacco or etoh use. Uses cannabis. Family history: Not obtainable due to dementia 3 Allergy/AdvReac Type Severity Reaction Status Date / Time No Known Allergies Allergy Unverified 06/18/14 15:29 Medications 3 Generic Name Dose Route Start Last Admin Trade Name Freq PRN Reason Stop Dose Admin Acetaminophen 650 mg 05/29/18 14:45 06/02/18 10:02 Tylenol PO 11/25/18 14:44 650 mg Q4HRS PRN Administration Pain, Mild/Fever, Can Take PO Baclofen 5 mg 05/29/18 16:00 06/02/18 10:03 Baclofen PO 11/25/18 15:59 5 mg TID ANDRES Administration Bisacodyl 10 mg 06/02/18 09:58 Dulcolax Rectal IL 11/29/18 09:57 DAILY PRN Constipation Protocol Ampicillin Sodium/Sulbactam 100 mls @ 200 mls/hr 05/30/18 18:00 06/02/18 11: 56 Sodium 3 gm/ Sodium Chloride IV 06/29/18 17:59 100 mls Q6HRS ANDRES Administration Protocol Sodium Chloride 1,000 mls @ 75 mls/hr 05/31/18 12:00 06/02/18 12:47 Ns IV 11/27/18 11:59 1,000 mls CONT ANDRES Administration Micafungin Sodium 100 mg/ 100 mls @ 100 mls/hr 06/01/18 17:00 06/01/18 18:01 Sodium Chloride IV 07/01/18 16:59 100 mls DAILY@1700 ANDRES Administration Lactulose 20 gm 06/02/18 09:58 Cephulac PO 11/29/18 09:57 TID PRN Constipation Protocol Levothyroxine Sodium 50 mcg 05/30/18 06:00 06/02/18 06:19 Synthroid PO 11/26/18 05:59 50 mcg DAILY06 ANDRES Administration Magnesium Hydroxide 30 ml 06/02/18 09:58 Milk Of Magnesia PO 11/29/18 09:57 DAILY PRN Constipation Protocol Miscellaneous Medication 50 mg 05/30/18 09:00 06/02/18 10:09 Tapentadol Hcl [Nucynta Er] PO 11/26/18 08:59 Not Given DAILY ANDRES Nystatin 1 mariely 05/29/18 16:45 06/02/18 10:07 Mycostatin Powder TP 06/28/18 16:44 1 mariely TID ANDRES Administration Ondansetron HCl 4 mg 05/29/18 14:45 Zofran IVP 11/25/18 14:44 Q4HRS PRN Nausea/Vomiting, Can't Take PO Ondansetron HCl 4 mg 05/29/18 14:45 Zofran Odt PO 11/25/18 14:44 Q4HRS PRN Nausea/Vomiting, Use 1st Pantoprazole Sodium 40 mg 05/31/18 21:00 06/02/18 10:03 Protonix IVP 11/27/18 20:59 40 mg BID ANDRES Administration Polyethylene Glycol 17 gm 06/02/18 09:58 06/02/18 11:56 Miralax PO 11/29/18 09:57 17 gm DAILY PRN Administration Constipation, patient prefers Protocol Potassium Chloride 1 dose 05/29/18 14:47 Protocol Potassium MISC 11/25/18 14:46 AD PRN Pt on Electrolyte Protocol Protocol Rivaroxaban 20 mg 05/29/18 18:00 06/01/18 18:01 Xarelto PO 11/25/18 17:59 20 mg DAILY18 ANDRES Administration Senna 2 tab 05/30/18 09:00 06/02/18 10:02 Senokot PO 11/26/18 08:59 2 tab DAILY ANDRES Administration Senna/Docusate Sodium 1 - 2 tab 06/02/18 21:00 Senokot-S PO 11/29/18 20:59 BID ANDRES Protocol Sertraline HCl 50 mg 05/30/18 09:00 06/02/18 10:03 Zoloft PO 11/26/18 08:59 50 mg DAILY ANDRES Administration 3 Temp Pulse Resp BP Pulse Ox 36.8 C 79 12 126/79 H 94 06/02/18 11:55 06/02/18 11:55 06/02/18 11:55 06/02/18 11:55 06/02/18 11:55 3 O2 (L/minute) 1 Physical exam: General: Elderly male lying in bed no acute distress HEENT: Arcus senilis, no conjunctiva injection, no jaundice Neck: Supple, no nuchal rigidity, trachea midline. Chest: Shallow inspiratory effort, crackles left base Cardiovascular: Regular rate rhythm without murmurs, gallops or rubs. Abdomen: Soft, significant abdominal distension, minimal diffuse tenderness to palpation, decreased bowel sounds, no guarding : Condom catheter Musculoskeletal: Chronic [place] lower extremity edema with hyperpigmentation Skin: No rashes. No stigmata of endocarditis. Neuro: Sleepy but wakes up to verbal communication Laboratory Results 06/01/18 08:13 06/02/18 04:08 MICROBIOLOGY 05/29/18 14:06 Blood cx (04/10): Belgica Glabrata Greater than 50 minutes spent on this patients care, greater than 50% of time spent counseling, educating, and coordinating care regarding the above mentioned plan.
--- NOTE | 2018-06-02 14:05 | PDIAF ---
- Diagnosis Diagnosis: C. glabrata blood stream infection Code Status: Do Not Resuscitate - Medication Management Fdc Antibiotics: micafungin 100mg IV daily Fdc Antibiotic Stop Date: 06/08/18 Discharge Medications: electronically signed and located in the Home Medication List. PICC Care - Routine: N/A - Orders Isolation Type: Contact Isolation, Droplet Isolation Diet Texture: Regular Texture Diet, Thin Liquids - Labs/Radiology Call or Fax Lab and Imaging Results to: Lynn Torres MD [facility] at fax [phone] - Follow Up Care Current Providers and Referrals: STEFFANIE CONTRERAS [Primary Care Provider] - As per Instructions
--- NOTE | 2018-06-02 15:23 | HOSPPROG ---
Hospitalist Progress Note Assessment/Plan: 67 year old male with pmh of HTN, PE, TBI, Hypothyroid admitted with hypotension , ARF, acute on chronic hypoxemic respiratory failure. Acute Hypoxemic respiratory failure-Resolved. due to RSV and possible aspiration PNA. Now nearly off oxygen. -continue unasyn treat for5 days tentatively -cont oxygen, nebs PRN Belgica Glabrata fungemia- discussed case with ID who recommends 7 days of micafungin, peripherally as patient a terrible candidate for PICC. Hypotension- Resolved. Likely secondary to hypovolemia. Has responded to fluids and now pressures have normalized. -cont abx as above -continue IVNS NATALIE- Resolved. creatinine has continued to improve with IVNS. down to 1.2 today. continue fluids and recheck renal function in am. Hypokalemia- Resolved. presumed GI losses from diarrhea. on protocol. PE- on xarelto. cont Hypothyroid- cont synthroid. check TSH Chronic pain- on nucynta and baclofen. will restart nucynta as he is having a fair amountof discomfort. NV- seems to have resolved. No emesis today. Diarrhea- resolved, no BM in two days. Decubitus- has likely stage 3 wound on buttocks. Wound care consulted. PPX- SCDs, Xarelto Fluids- Cont ns Lytes- low K, repleting Nutrition- regular Cor-DNR Dispo- patient improved.posisble DC back home in 1-2 days. Subjective: no complaints. wants a cup of ice. Objective: Vital Signs Temp Pulse Resp BP Pulse Ox 36.8 C 79 12 126/79 H 94 06/02/18 11:55 06/02/18 11:55 06/02/18 11:55 06/02/18 11:55 06/02/18 11:55 Laboratory Results 06/01/18 08:13 06/02/18 04:08 06/01/18 06/02/18 06/03/18 05:59 05:59 05:59 Intake Total 2060 1400 1460 Output Total 800 1050 850 Balance 1260 350 610 PT 28.6 SEC (12.0-15.0) H 05/29/18 14:30 INR 2.70 (0.83-1.16) H 05/29/18 14:30 - Physical Exam Constitutional: no apparent distress, appears nourished, not in pain Eyes: PERRL, anicteric sclera, EOMI Ears, Nose, Mouth, Throat: moist mucous membranes, hearing normal, ears appear normal, no oral mucosal ulcers Cardiovascular: regular rate and rhythym, no murmur, rub, or gallop Respiratory: no respiratory distress, no rales or rhonchi, clear to auscultation Gastrointestinal: normoactive bowel sounds, soft, non-tender abdomen, no palpable masses Genitourinary: no bladder fullness, no bladder tenderness, no renal bruits Skin: no rashes or abrasions, no fluctuance, no induration Musculoskeletal: generalized weakness Neurologic: weakness Psychiatric: not anxious, encephalopathic, poor insight, poor judgement, poor memory Lymph, Heme, Immunologic: no cervical LAD, no supraclavicular LAD ICD10 Worksheet Patient Problems: Problems Problem Status Onset Acute renal failure Acute Hypokalemia Acute Pneumonia Acute
[2018-06-02] MEDS: MICAFUNGIN NA 100 MG in NS 100 ML IV SCH ×2 (16:36→16:37)
[2018-06-02] MEDS: RIVAROXABAN 10 MG TAB PO SCH (18:16)
[2018-06-02] MEDS: SENNOSIDES/DOCUSATE SODIUM TAB PO SCH (23:44)
[2018-06-03] MEDS: NYSTATIN POWDER 15 GM BTL TP SCH ×2 (00:12→09:50)
[2018-06-03] MEDS: AMPICILLIN/SULBACTAM 3 GM in NS 100 ML IV SCH ×2 (06:28→15:08)
[2018-06-03] MEDS: NS 1,000 ML IV SCH (06:29)
[2018-06-03 09:46] VITALS: BP 158/101
[2018-06-03] MEDS: BACLOFEN 10 MG TAB PO SCH (09:48)
[2018-06-03] MEDS: PANTOPRAZOLE SODIUM 40 MG VIAL IVP SCH (09:48)
[2018-06-03] MEDS: SERTRALINE HCL 50 MG TAB PO SCH (09:48)
[2018-06-03] MEDS: SENNOSIDES 1 TAB PO SCH (09:50)
[2018-06-03] MEDS: LEVOTHYROXINE 50 MCG TAB PO SCH (09:50)
[2018-06-03] MEDS: ACETAMINOPHEN 325 MG TAB PO PRN (09:51)
[2018-06-03] MEDS: TAPENTADOL HCL 50 MG PO SCH (10:01)
[2018-06-03] MEDS ORDERED: POTASSIUM CL 10 MEQ TAB PO ONE (10:34)
[2018-06-03] MEDS: SENNOSIDES/DOCUSATE SODIUM TAB PO SCH (13:23)
[2018-06-03] MEDS ORDERED: MICAFUNGIN NA 100 MG in NS 100 ML IV SCH (14:00)
--- NOTE | 2018-06-03 15:00 | WOCRNPDOC ---
WOCRN Advanced Assessment Note - Skin Integrity Problem, Advanced Assess Coccyx Pressure Injury Dressing Type: Open to Air Exudate Amount: None Integumentary Issue Intervention: Barrier Cream Applied Thalia Wound Tissue: Blanching, Erythema, Non-blanching, Scarred Wound Bed Color: Red Wound Bed Constitution: Granulation Tissue (100%), Red/[place] - Non Granular Tissue (100%) Wound Edges: Epithelizing, Attached Site Measurement - Head-to-Toe Length X Width X Depth (cm): 0.5x0.3x0.1 (coccyx) Pressure Injury Stage: Stage 3 Pressure Injury Present on Admit: Yes Skin Integrity Problem Comment: Large area of scarring from multiple pressure injuries on sacrum/coccyx/ischials. The only full thickness opening remaining at this time is directly over the coccyx in an anatomical depression. There are several other smaller partial thickness openings scattered througout the sacrum and buttocks in the area of scarring (10x12 cm). No open areas noted over ischial tuberosities at this time. Wound Care will follow. BAUTISTA Rivera in room for care.
--- NOTE | 2018-06-03 15:13 | ASMTLACE ---
LACE Length of stay for Answers: 4-6 days current admission Acuity / Level of Answers: Yes Care: Did the patient have an inpatient admission? Comorbidities - select Answers: Cerebrovascular disease all that apply (CVA, TIA, aneurysms, vasc ular dementia) Dementia Opioid dependence / Chronic pain Other Notes: Hx of TBI; HTN; Hx of P Es # of Emergency department Answers: 1-2 visits in the last 6 months Score: 17 Date Signed: 06/03/2018 03:13 PM Electronically Signed By:Marina Alfonso RN
--- NOTE | 2018-06-03 15:17 | ASMTDCNOTE ---
Case Management Discharge Discharge Order Complete? Answers: Yes Patient to Obtain Answers: Other Notes: [facility] Medications Transportation Arranged Answers: [facility] Case Management Transport Answers: Yes Form Complete Faxed Final Orders Answers: Yes Notes: [facility] Agency/Facility Transfer Answers: Yes Notes: [facility] Report Printed & Faxed to Receiving Agency Discharge Comments Notes: 06/03/2018 Case Management Note Faxed final orders to [facility]. At request of [facility] arranged for [facility] stretcher transport. 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 Provided phone number for RN to call report. Faxed hard copy of Proxy to [facility]. CAGE deferred d/t pt orientation to self only. Case Management d/c poc: return to [place] Date Signed: 06/03/2018 03:16 PM Electronically Signed By:Marina Alfonso RN
--- NOTE | 2018-06-03 15:21 | ASDISCHSUM ---
Discharge Information Plan Status:SNF Medically Cleared to Leave:06/02/2018 Discharge Date:06/02/2018 CM D/C Disposition:Long Term Facility ADT D/C Disposition:Long Term Facility Projected Discharge Date:05/31/2018 11:00 AM Transportation at D/C:ALS/BLS Discharge Delay Reason: Follow-Up Date:05/31/2018 11:00 AM Discharge Slot: Final Diagnosis: Placement Information Referral Type:*Fdc/SNF Referral ID:[id number] Provider Name:Monet Jainulder Address 1:[address] Address 2: City:[place] Selection Factors: State:[place] Patient Contact Information Contact Name:GEORGESARLINE Relationship: Address: Home Phone: Work Phone: City: [facility] Phone: [facility] Code: Email: Financial Information Financial Class:Medicare Advantage Plans Primary Plan Desc:[facility] Hua Kang Primary Plan Number:[id number] Secondary Plan Desc:[employer] Secondary Plan Number:[id number] Assessment Information [facility] CM Progress Note CM Note CM Note Notes: Patient presents to ED via ambulance from [facility] with complaints of dehydration. See ED report for details. This CM has spoken with Deepthi at to inform of admission for PNA. Giovana confirms that sy have LM with patient's "family" but have not heard back. I have provided Giovana with patient's room number and direct phone number to provide to family if/when they hear from them. Patient is a DNR and a hospice consult was evidently discussed with patient this morning at prior to ED arrival. Giovana explains that patient had been resistant to coming to the ED over the weekend but decided today that he would come. This CM met with patient briefly prior to going upstairs and informed him that has LM with family regarding his admission. CM to follow Date Signed: 05/29/2018 03:02 PM Electronically Signed By:Karma Guzman RN LACE LACE Length of stay for Answers: 4-6 days current admission Acuity / Level of Answers: Yes Care: Did the patient have an inpatient admission? Comorbidities - select Answers: Cerebrovascular disease all that apply (CVA, TIA, aneurysms, vasc ular dementia) Dementia Opioid dependence / Chronic pain Other Notes: Hx of TBI; HTN; Hx of P Es # of Emergency department Answers: 1-2 visits in the last 6 months Score: 17 Date Signed: 06/03/2018 03:13 PM Electronically Signed By:Marina Alfonso RN [facility] Progress Note CM Note CM Note Notes: Pts case discussed in tx rounds. Pt is deemed non decisional per Dr. Orr. [facility] came to attempt a evaluation. [facility] was unsuccessful as pt is not decisional. CM has been in touch w/ Dominique at [facility]. It is documented on their end that Chani Wilson (P#: [phone]) is an ex and MDPOA. CM tried that number and it is busy. Per [facility]'s social media marketing specialist, Yuan all the numbers that they have on file are either disconnected or busy. They report that the ex hasn't been in contact for 8 months. CM met w/ pt for dispo planning. Pt provided a phone number for his friend Antelmo Gates and the phone number does not work. Pt reports that they have been friends for 16 years and he lives in [place]. CM spoke to Fely about this case. CM to follow. Date Signed: 05/30/2018 04:17 PM Electronically Signed By:ERWIN Winkler [facility] TEO Progress Note CM Note CM Note Notes: TEO spoke to Noah, extension division director at [facility]. Noah reports that pt is welcomed to come back and they will work on getting a proxy. Noah was hoping that pt can come back w/ palliative care services. TEO forwarded pts ex 's name and friend's name to Fely to look up. Date Signed: 05/30/2018 04:26 PM Electronically Signed By:ERWIN Winkler [facility] TEO Progress Note CM Note TEO Note Notes: Pts case discussed in tx rounds. Dominique sent pts MDPOA paperwork over. CM put it into pts chart. TEO called pts daughter Inga (P#: [phone]) and left a msg. TEO attempted to call Chani's phone number again but it was busy again. Fely will try to look up Chani up on a system finder. Pt will return back to [facility] when medically stable. [facility] will be able to assist in finding proxy. TEO to follow. Plan: [facility] Date Signed: 05/31/2018 03:22 PM Electronically Signed By:ERWIN Winkler [facility] Progress Note CM Note CM Note Notes: Pts friend Olive (P#: [phone]) stopped by and visited w/ pt. Olive is willing to be proxy until pts friend Jos (P#:[phone])returns from [place]. CM left a msg for Jos and requested a call back. CM shared this info w/ Fely and Dominique at [facility]. CM faxed proxy paperwork to [facility]. CM to follow. Plan: [facility] Date Signed: 05/31/2018 04:15 PM Electronically Signed By:ERWIN Winkler Case Management Discharge Plan Note Case Management Discharge Discharge Order Complete? Answers: Yes Patient to Obtain Answers: Other Notes: [facility] Medications Transportation Arranged Answers: [facility] Case Management Transport Answers: Yes Form Complete Faxed Final Orders Answers: Yes Notes: [facility] Agency/Facility Transfer Answers: Yes Notes: [facility] Report Printed & Faxed to Receiving Agency Discharge Comments Notes: 06/03/2018 Case Management Note Faxed final orders to [facility]. At request of [facility] arranged for [facility] stretcher transport. 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 Provided phone number for RN to call report. Faxed hard copy of Proxy to Estrella at [facility]. CAGE deferred d/t pt orientation to self only. Case Management d/c poc: return to [place] Date Signed: 06/03/2018 03:16 PM Electronically Signed By:Marina Alfonso RN Intervention Information Intervention Type:*Incorrect Registration Date of Service:05/29/2018 07:56 PM Patient Type:Observation Staff Member:Doretha Woodall Hours: Discipline: Severity: Comment:
--- NOTE | 2018-06-03 15:29 | PDIAF ---
- Diagnosis Diagnosis: C. glabrata blood stream infection Code Status: Do Not Resuscitate - Medication Management Fpc Antibiotics: micafungin 100mg IV daily Fpc Antibiotic Stop Date: 06/08/18 Discharge Medications: electronically signed and located in the Home Medication List. PICC Care - Routine: N/A - Orders Services needed: Registered Nurse, Physical Therapy, Occupational Therapy Isolation Type: Contact Isolation, Droplet Isolation Diet Recommendation: no restrictions on diet Diet Texture: Regular Texture Diet, Thin Liquids - Labs/Radiology Call or Fax Lab and Imaging Results to: Lynn Torres MD [facility] for Infect[facility] Diseases at fax [phone] - Follow Up Care Current Providers and Referrals: STEFFANIE CONTRERAS [Primary Care Provider] - As per Instructions
--- NOTE | 2018-06-03 17:59 | PDDCSUM ---
Discharge Summary Discharge Summary: Discharge diagnosis Acute renal failure Respiratory syncytial virus Aspiration pneumonia Belgica glabrata candidemia Acute hypoxemic respiratory failure Hypokalemia Dementia History of PE Patient is a 67-year-old male who resides at a local assisted living facility who presented with nausea vomiting dehydration and acute renal failure secondary to these along with an acute hypoxemic respiratory failure presumed to be secondary to aspirating vomit. The patient was started on antibiotics for a presumed aspiration pneumonia. He was given aggressive fluid hydration for his acute renal failure. He was given electrolytes for his hypokalemia. Blood cultures were drawn which ultimately grew out Belgica glabrata. He was treated for 5 days with Unasyn for aspiration pneumonia. Over the course of his stay his oxygenation dramatically improved ultimately not requiring any oxygen. Infectious Disease was consulted given his candidemia who recommended treating for 7 days with micafungin. With fluid resuscitation his renal function normalized completely. He was discharged home to complete the course of micafungin. On the day of discharge he was tolerating p.o. With no problems requiring no supplemental oxygen are fluids and in good condition. Discharge disposition Back to [facility] I spent over 30 min on the discharge of this patient
== END 2018-06-03 16:47 | DRG 177 ==
LOC: EDUNIT# → OBSVTOIN 14:50 → F2W 15:05
PROVIDERS: ADMIT Internal Medicine; ATTEND Internal Medicine
DX: J69.0 Pneumonitis due to inhalation of food and vomit (principal); J96.21 Acute and chronic respiratory failure with hypoxia; N17.9 Acute kidney failure, unspecified; E87.1 Hypo-osmolality and hyponatremia; E87.6 Hypokalemia; B49 Unspecified mycosis; L89.153 Pressure ulcer of sacral region, stage 3; E03.9 Hypothyroidism, unspecified; F03.90 Unspecified dementia, unspecified severity, without behavioral disturbance, psychotic disturbance, mood disturbance, and anxiety; G89.29 Other chronic pain; I10 Essential (primary) hypertension; Z99.81 Dependence on supplemental oxygen; Z86.711 Personal history of pulmonary embolism; Z87.820 Personal history of traumatic brain injury; Z23 Encounter for immunization; Z86.73 Personal history of transient ischemic attack (TIA), and cerebral infarction without residual deficits; Z66 Do not resuscitate; F17.210 Nicotine dependence, cigarettes, uncomplicated
CPT/HCPCS: 87186-90; 92526-GN; 92610-GN; 96365; 97110-GP; 97162-GP; 97530-GP; G0008; G0009; J0295; J2248; J2405; J2543